=== PATIENT | male | born 1960 | race Caucasian/White ===

== ENCOUNTER 2017-03-04 14:49 | Outpatient (CLI) | payer BC ==
--- NOTE | 2017-03-04 15:44 | Ultrasound Preliminary Report ---
Exam: US Testicle w/Doppler IMPRESSION: Essentially negative study with trace hydroceles and small epididymal cysts. [facility] SITE ID: [id number]
--- NOTE | 2017-03-04 15:47 | Ultrasound Report ---
EXAM: SCROTAL ULTRASOUND EXAM DATE: 03/04/2017 03:26 PM. CLINICAL HISTORY: LEFT TESTICULAR PAIN. COMPARISON: None. TECHNIQUE: Real-time scanning was performed with static images obtained. Both color-flow and Doppler spectral analysis were utilized. FINDINGS: Right: Testis: 5.2 x 2.2 x 3.3 cm. Normal size and echotexture. No mass, calcification, or abnormal blood fl ow. Epididymis: 0.7 x 0.4 x 0.7 cm. Normal size and echotexture. No mass or abnormal blood flow. Small ep ididymal cysts, the largest measuring 1.7 x 0.6 x 1.2 cm. Hydrocele: Trace hydrocele. Varicocele: None. Left: Testis: 4.9 x 2.3 x 2.6 cm. Normal size and echotexture. No mass, calcification, or abnormal blood fl ow. Epididymis: 1.3 x 0.7 x 0.8 cm. Normal size and echotexture. No mass or abnormal blood flow. Small ep ididymal cyst measuring 0.8 x 0.4 x 1.0 cm. Hydrocele: Trace hydrocele. Varicocele: None. IMPRESSION: Essentially negative study with trace hydroceles and small epididymal cysts. [facility] Referring Provider Line: [phone] SITE ID: [id number]
== END 2017-03-04 14:50 | disposition home or self-care (01) ==
LOC: DI 14:49
PROVIDERS: ATTEND Specialist
DX: N50.3 Cyst of epididymis (principal); N43.3 Hydrocele, unspecified
CPT/HCPCS: 76870; 93975